=== PATIENT | male | born 2000 | race Caucasian/White ===

== ENCOUNTER 2018-03-17 17:02 | Emergency (ER) | payer OTHER ==
[2018-03-17 17:14] VITALS: BP 116/63; PULSE 81; TEMP 97; BMI 20.7
[2018-03-17] MEDS ORDERED: TETANUS AND DIPHTHERIA TOXOID 0.5 ML DISP.SYRIN IM ONE (18:02)
--- NOTE | 2018-03-17 18:12 | PDOC ---
History of Present Illness - General Chief Complaint: Injury Stated Complaint: PAIN Time Seen by Provider: 03/17/18 17:29 History Source: Patient, Parent(s) (father ) Exam Limitations: Clinical Condition - History of Present Illness Initial Comments: 03/17/18 18:04 Patient with no sig PMhx present with father with complains of open wound and abrasions to gilliam of left leg s/p being hit with a cleat shoe during baseball game this afternoon. pt report one small hole to gilliam which is deep. pt unsure of last tetanus vaccine Timing/Duration: 1-3 hours Severity: moderate Modifying Factors: worse with: movement Associated Symptoms: denies: weakness Aspirin Received prior to arrival: Yes: no aspirin today Past History - Past Medical History Allergies/Adverse Reactions: Allergies Allergy/AdvReac Type Severity Reaction Status Date / Time No Known Allergies Allergy Verified 03/17/18 17:14 Home Medications: Ambulatory Orders Ibuprofen 800 mg PO PRN PRN #20 tablet 03/17/18 Mupirocin Ointment [Bactroban 2% Ointment -] 1 applic TP BID #1 tube 03/17/18 Sulfamethoxazole/Trimethoprim [Bactrim Ds -] 1 tab PO BID #14 tablet 03/17/18 COPD: No - Immunization History Immunization Up to Date: Yes - Suicide/Smoking/Psychosocial Hx Smoking History: Never smoked Hx Alcohol Use: No Review of Systems - Review of Systems Constitutional: No: Chills, Diaphoresis, Fever, Loss of Appetite, Malaise, Night Sweats, Weakness, Weight Stable, Unintentional Wgt. Loss, Unexplained wgt Loss, Other HEENTM: No: Eye Pain, Blurred Vision, Tearing, Recent change in vision, Double Vision, Cataracts, Ear Pain, Ocular Prothesis, Ear Discharge, Nose Pain, Nose Congestion, Tinnitus, Nose Bleeding, Hearing Loss, Throat Pain, Throat Swelling , Mouth Pain, Dental Problems, Difficulty Swallowing, Mouth Swelling, Other Respiratory: No: Cough, Orthopnea, Shortness of Breath, SOB with Exertion, SOB at Rest, Stridor, Wheezing, Productive cough, Hemoptysis, Other Cardiac (ROS): No: Chest Pain, Edema, Irregular Heart Rate, Lightheadedness, Palpitations, Syncope, Chest Tightness, Other ABD/GI: No: Abdominal Distended, Abd. Pain w/ defecation, Blood Streaked Bowels , Constipated, Diarrhea, Difficulty Swallowing, Nausea, Poor Appetite, Poor Fluid Intake, Rectal Bleeding, Vomiting, Indigestion, Abdominal cramping, Tarry Stools, Other Musculoskeletal: Yes: Muscle Pain (gilliam of left leg), Other (bleeding and pain to gilliam of left leg around injury area). No: Joint Pain Integumentary: Yes: Other (multiple abrasions to gilliam of left leg. single deep puncture injury to gilliam of left leg) Neurological: No: Numbness, Paresthesia, Unsteady Gait *Physical Exam - Vital Signs Last Vital Signs Temp Pulse Resp BP Pulse Ox 97 F L 81 18 116/63 99 03/17/18 17:12 03/17/18 17:12 03/17/18 17:12 03/17/18 17:12 03/17/18 17:12 - Physical Exam General Appearance: Yes: Nourished, Appropriately Dressed, Mild Distress HEENT: positive: Normal ENT Inspection, TMs Normal, Pharynx Normal Neck: positive: Trachea midline, Supple Respiratory/Chest: positive: Lungs Clear. negative: Respiratory Distress, Accessory Muscle Use Cardiovascular: positive: Regular Rhythm, Regular Rate, S1, S2 Gastrointestinal/Abdominal: positive: Normal Bowel Sounds Musculoskeletal: positive: Other (multiple superficial abrasions to gilliam of left leg. single 1cm deep puncture wound to medial side of mid gilliam of leflt leg with moderate bleeding) Extremity: positive: Normal Capillary Refill, Normal Range of Motion, Other ( multiple superficial abrasions to gilliam of left leg. single deep 1cm puncture wound to medial side of mid- gilliam of left leg) Neurologic: positive: Fully Oriented, Normal Mood/Affect, Normal Response, Motor Strength 5/5 Procedures - Laceration/Wound Repair Left Anterior Medial Distal Plantar Leg Wound Explored: clean Wound's Depth, Shape: into muscle, contused tissue Irrigated w/ Saline: No Betadine Prep: Yes Anesthesia: 1% Lidocaine Amount of Anesthetic (ccs): 2 Wound Repaired With: Sutures Suture Size/Type: 4:0, nylon Number of Sutures: 3 Layer Closure: No Sterile Dressing Applied: Yes Splint Applied: No Sling Applied: No Progress: 03/17/18 18:31 puncture wound of gilliam of left leg clean with betadine. wound infiltrated with 2cc 1% lidocaine. wound closed with 3 interrupted 4'O nylon sutures with closed wound. bacitracin applied to wound. wound covered with telfa and tegederm. Patient tolerated procedure well. tetanus vaccine given ED Treatment Course - RADIOLOGY Radiology Studies Ordered: Category Date Time Status LEG TIB/FIB-LEFT [RAD] Stat Radiology 03/17/18 18:02 Ordered Medical Decision Making - Medical Decision Making 03/17/18 18:15 Patient presenting with abrasions and puncture wound of left leg from sport injury. puncture wound anesthesized and closed. wound car of abrasions done. order x-ray of left LE to r/o fracture or pathology. Tetanus vaccine ordered. reassess after imaging 03/17/18 18:33 x-rays of tib-fib shows no acute fracture or dislocation. stable for home visit with prophylaxis Bactrim Abx and follow-up in 2-5 days for wound check *DC/Admit/Observation/Transfer Diagnosis at time of Disposition: Puncture wound of leg not thigh, left Qualifiers: Encounter type: initial encounter Qualified Code(s): S81.832A - Puncture wound without foreign body, left lower leg, initial encounter Abrasion of left lower leg Qualifiers: Encounter type: initial encounter Qualified Code(s): S80.812A - Abrasion, left lower leg, initial encounter - Discharge Dispostion Disposition: HOME Condition at time of disposition: Stable Decision to Admit order: No - Prescriptions Prescriptions: Ibuprofen 800 mg PO PRN PRN #20 tablet PRN Reason: Pain Mupirocin Ointment [Bactroban 2% Ointment -] 1 applic TP BID #1 tube Sulfamethoxazole/Trimethoprim [Bactrim Ds -] 1 tab PO BID #14 tablet - Referrals Referrals: Trey Clark MD [Primary Care Provider] - - Patient Instructions Printed Discharge Instructions: DI for Puncture Wound, Skin Wound Additional Instructions: take medication as prescribed. apply cream to wound two times/ day. follow-up in 5 days for suture removal - Post Discharge Activity
== END 2018-03-17 18:47 | disposition home or self-care (01) ==
LOC: JERFT 17:02
PROC: 3E0234Z Introduction of Serum, Toxoid and Vaccine into Muscle, Percutaneous Approach (ICD-10-PCS; principal; 2018-03-17)
PROC: 0JQP0ZZ Repair Left Lower Leg Subcutaneous Tissue and Fascia, Open Approach (ICD-10-PCS; 2018-03-17)
DX: S81.832A Puncture wound without foreign body, left lower leg, initial encounter (principal); W21.31XA Struck by shoe cleats, initial encounter; Y93.64 Activity, baseball; Y92.320 Baseball field as the place of occurrence of the external cause; Y99.8 Other external cause status
CPT/HCPCS: 73590-TC-LT-FY; 99282-25

== ENCOUNTER 2018-03-23 13:16 | Emergency (ER) | payer OTHER ==
[2018-03-23 13:26] VITALS: BP 125/52; PULSE 65; TEMP 98.5; BMI 20.7
--- NOTE | 2018-03-23 13:34 | PDOC ---
History of Present Illness - General Chief Complaint: Suture/Staple Removal(Here) Stated Complaint: Suture/Staple Removal (other) Time Seen by Provider: 03/23/18 13:25 History Source: Patient Exam Limitations: Clinical Condition - History of Present Illness Initial Comments: 03/23/18 13:28 patient presents for laceration reassessment after having laceration from football cleats gilliam of left leg a week ago requiring suture. He denies any redness, drainage, increased warmth to wound sites. Patient denies problems moving left lower extremity Past History - Past Medical History Allergies/Adverse Reactions: Allergies Allergy/AdvReac Type Severity Reaction Status Date / Time No Known Allergies Allergy Verified 03/23/18 13:23 Home Medications: Ambulatory Orders Ibuprofen 800 mg PO PRN PRN #20 tablet 03/17/18 Mupirocin Ointment [Bactroban 2% Ointment -] 1 applic TP BID #1 tube 03/17/18 Sulfamethoxazole/Trimethoprim [Bactrim Ds -] 1 tab PO BID #14 tablet 03/17/18 COPD: No - Immunization History Immunization Up to Date: Yes - Suicide/Smoking/Psychosocial Hx Smoking History: Never smoked Information on smoking cessation initiated: No Hx Alcohol Use: No Drug/Substance Use Hx: No Substance Use Type: None Review of Systems - Review of Systems Comments:: 03/23/18 13:30 CONSTITUTIONAL: Absent: fever, chills, fatigue EYES: Absent: visual changes ENT: Absent: ear pain, sore throat CARDIOVASCULAR: Absent: chest pain, palpitations RESPIRATORY: Absent: cough, SOB GI: Absent: abdominal pain, nausea, vomiting, constipation, diarrhea GENITOURINARY: Absent: dysuria, frequency, hematuria MUSKULOSKELETAL: Absent: back pain, arthralgia, myalgia SKIN: laceration to gilliam of left lower leg Absent: rash NEURO: Absent: headache, dizziness *Physical Exam - Vital Signs Last Vital Signs Temp Pulse Resp BP Pulse Ox 98.5 F 65 15 125/52 99 03/23/18 13:23 03/23/18 13:23 03/23/18 13:23 03/23/18 13:23 03/23/18 13:23 - Physical Exam Comments: 03/23/18 13:31 GENERAL: Well developed, well nourished. Awake and alert. No acute distress. HEENT: Normocephalic, atraumatic. PERRLA, EOMI. No conjunctival pallor. Sclera are non- icteric. Moist mucous membranes. Oropharynx is clear. NECK: Supple. Full ROM. No JVD. Carotid pulses 2+ and symmetric, without bruits. No thyromegaly. No lymphadenopathy. CARDIOVASCULAR: Regular rate and rhythm. No murmurs, rubs, or gallops. Distal pulses are 2+ and symmetric. PULMONARY: No evidence of respiratory distress. Lungs clear to auscultation bilaterally. No wheezing, rales or rhonchi. ABDOMINAL: Soft. Non-tender. Non-distended. No rebound or guarding. No organomegaly. Normoactive bowel sounds. MUSCULOSKELETAL Normal range of motion at all joints. No bony deformities or tenderness. No CVA tenderness. EXTREMITIES: No cyanosis. No clubbing. No edema. No calf tenderness. SKIN: Well healing 1 cm laceration to gilliam of left leg with [address] No erythema to area. No drainage from area. No evidence of wound infection. NEUROLOGICAL: Alert, awake, appropriate. Cranial nerves 2-12 intact. No deficits to light touch and temperature in face, upper extremities and lower extremities. No motor deficits in the in face, upper extremities and lower extremities. Normoreflexic in the upper and lower extremities. Normal speech. Toes are down- going bilaterally. Gait is normal without ataxia. PSYCHIATRIC: Cooperative. Good eye contact. Appropriate mood and affect. 03/23/18 13:41 General Appearance: Yes: Nourished, Appropriately Dressed. No: Apparent Distress Medical Decision Making - Medical Decision Making 03/23/18 13:32 Patient with laceration to gilliam up left leg presenting for wound check and suture removal. Removal without complication. No evidence of infection or dehiscence of wound sites. Patient educated on home wound care. Follow-up as needed *DC/Admit/Observation/Transfer Diagnosis at time of Disposition: Puncture wound of leg not thigh, left Qualifiers: Encounter type: subsequent encounter Qualified Code(s): S81.832D - Puncture wound without foreign body, left lower leg, subsequent encounter - Discharge Dispostion Disposition: HOME Decision to Admit order: No - Referrals Referrals: Trey Clark MD [Primary Care Provider] - - Patient Instructions Printed Discharge Instructions: DI for Suture Removal Additional Instructions: keep applying topical antibiotics until wound completely healed - Post Discharge Activity
== END 2018-03-23 13:47 | disposition home or self-care (01) ==
LOC: JERFT 13:16
DX: Z48.817 Encounter for surgical aftercare following surgery on the skin and subcutaneous tissue (principal); Z48.02 Encounter for removal of sutures
CPT/HCPCS: 99281-25